=== PATIENT | male | born 1950 | race Caucasian/White ===

== ENCOUNTER → 2019-03-31 07:49 | Outpatient (CLI) | payer MEDICARE, SELFPAY ==
[2019-03-31 08:13] LABS: Add Manual Diff / Slide Review NO; Basophils Absolute Auto 100 /uL (0-100); Basophils Percent Auto 1.2 % (0-2); Eosinophils Absolute Auto 100 /uL (0-450); Eosinophils Percent Auto 2.3 % (2-4); Hemoglobin 15.6 g/dL (13.5-17.5); Lymphocytes Absolute Auto 1500 /uL (1100-4500); Lymphocytes Percent Auto 31.1 % (25-40); Mean Corpuscular HGB Conc 33.8 % (30-36); Mean Corpuscular Hemoglobin 31.2 PG (26-34); Mean Corpuscular Volume 92.5 fL (80-100); Monocytes Absolute Auto 500 /uL (0-900); Monocytes Percent Auto 11.1 % (3-14); Neutrophils Absolute Auto 2700 /uL (1500-7000); Neutrophils Percent Auto 54.3 % (50-75); Platelet Count 220 X10^3/uL (150-400); Red Blood Cell Count 4.98 X10^6/uL (4.5-5.9); Red Cell Distribution Width 13.7 % (11.6-14.8); White Blood Cell Count 4.9 X10^3/uL (4.5-11.0)
[2019-03-31 08:25] LABS: Alanine Aminotransferase 26 IU/L (21-72); Albumin 4.4 g/dL (3.5-5.0); Albumin Globulin Ratio 1.6 (1.0-2.8); Alkaline Phosphatase 62 U/L (38-126); Aspartate Aminotransferase 30 IU/L (17-59); Bilirubin Total 1.9 mg/dL (0.2-1.3); Blood Urea Nitrogen 18 mg/dL (9-20); Calcium 9.5 mg/dL (8.4-10.2); Carbon Dioxide 29 mmol/L (22-32); Chloride 102 mmol/L (98-107); Cholesterol 213 mg/dL (140-199); Estimated Glomerular Filt Rate > 60.0 mL/min (>60); Globulin 2.8 g/dL (1.7-4.1); Glucose 101 mg/dL (80-110); HDL Cholesterol 76 mg/dL (40-60); HEMOLYSIS 15 (0-50); LDL Cholesterol Calculated 120 mg/dL (<100); Potassium 4.3 mmol/L (3.4-5.1); Sodium 140 mmol/L (137-145); Total Protein 7.2 g/dL (6.3-8.2); Triglycerides 86 mg/dL (35-150)
[2019-03-31 08:54] LABS: Prostate Specific Antigen Scrn 0.732 ng/mL (0.1-4.0)
[2019-03-31 09:17] LABS: Vitamin D 25 Hydroxy (D3) 26.4 ng/mL (30.0-100.0)
[2019-03-31 09:30] LABS: Thyroid Stimulating Hormone 2.19 uIU/mL (0.47-4.68)
== END ==
PROVIDERS: Visit Provider Physician Assistant
DX: I10 Essential (primary) hypertension (principal); E78.5 Hyperlipidemia, unspecified; Z12.5 Encounter for screening for malignant neoplasm of prostate; E34.9 Endocrine disorder, unspecified; R53.83 Other fatigue; E55.9 Vitamin D deficiency, unspecified
CPT/HCPCS: 36415; 80053; 80061; 82306; 84403; 84443; 85025; G0103

== ENCOUNTER → 2020-03-10 17:24 | Outpatient (ROUT) | payer MEDICARE, SELFPAY ==
[2020-03-10 18:00] LABS: Add Manual Diff / Slide Review NO; Basophils Absolute Auto 0 /uL (0-100); Basophils Percent Auto 0.6 % (0-2); Eosinophils Absolute Auto 100 /uL (0-450); Eosinophils Percent Auto 1.2 % (2-4); Hemoglobin 15.2 g/dL (13.5-17.5); Lymphocytes Absolute Auto 1600 /uL (1100-4500); Lymphocytes Percent Auto 29.9 % (25-40); Mean Corpuscular HGB Conc 34.6 % (30-36); Mean Corpuscular Hemoglobin 31.6 PG (26-34); Mean Corpuscular Volume 91.3 fL (80-100); Monocytes Absolute Auto 600 /uL (0-900); Monocytes Percent Auto 10.5 % (3-14); Neutrophils Absolute Auto 3100 /uL (1500-7000); Neutrophils Percent Auto 57.8 % (50-75); Platelet Count 182 X10^3/uL (150-400); Red Blood Cell Count 4.82 X10^6/uL (4.5-5.9); Red Cell Distribution Width 13.2 % (11.6-14.8); White Blood Cell Count 5.4 X10^3/uL (4.5-11.0)
[2020-03-10 18:04] LABS: Alanine Aminotransferase 33 IU/L (<50); Albumin 4.2 g/dL (3.5-5.0); Albumin Globulin Ratio 1.6 (1.0-2.8); Alkaline Phosphatase 71 U/L (38-126); Aspartate Aminotransferase 32 IU/L (17-59); BUN Creatinine Ratio 16.5 (6-22); Blood Urea Nitrogen 16 mg/dL (9-20); Calcium 9.4 mg/dL (8.4-10.2); Carbon Dioxide 24 mmol/L (22-32); Chloride 105 mmol/L (98-107); Cholesterol 216 mg/dL (140-199); Estimated Glomerular Filt Rate > 60.0 mL/min (>60); Globulin 2.7 g/dL (1.7-4.1); Glucose 94 mg/dL (80-110); HDL Cholesterol 65 mg/dL (40-60); HEMOLYSIS < 15 (0-50); LDL Cholesterol Calculated 111 mg/dL (<100); Potassium 4.1 mmol/L (3.4-5.1); Sodium 136 mmol/L (137-145); Total Protein 6.9 g/dL (6.3-8.2); Triglycerides 198 mg/dL (35-150)
[2020-03-10 18:19] LABS: Vitamin D 25 Hydroxy (D3) 42.8 ng/mL (30.0-100.0)
[2020-03-10 18:32] LABS: TSH w/ Reflex to FT4 1.72 uIU/mL (0.47-4.68)
[2020-03-14 06:12] LABS: Percent Free Testosterone 3.06 % (1.50-4.20); Testosterone Free 7.48 ng/dL (5.00-21.00); Testosterone Total 244.5 ng/dL (264.0-916.0)
== END ==
PROVIDERS: Visit Provider Physician Assistant
DX: E34.9 Endocrine disorder, unspecified (principal); R53.83 Other fatigue; E55.9 Vitamin D deficiency, unspecified; E78.5 Hyperlipidemia, unspecified; I10 Essential (primary) hypertension
CPT/HCPCS: 80053; 80061; 82306; 84402; 84403; 84443; 85025

== ENCOUNTER → 2020-03-29 08:21 | Outpatient (CLI) | payer MEDICARE, SELFPAY ==
[2020-04-02 15:00] LABS: Percent Free Testosterone 4.68 % (1.50-4.20); Testosterone Free 15.14 ng/dL (5.00-21.00); Testosterone Total 323.6 ng/dL (264.0-916.0)
== END ==
PROVIDERS: PCP Physician Assistant; Referring Provider Physician Assistant; Visit Provider Physician Assistant
DX: E34.9 Endocrine disorder, unspecified (principal)
CPT/HCPCS: 36415; 84402; 84403

== ENCOUNTER → 2020-08-02 14:44 | Outpatient (ROUT) | payer MEDICARE, SELFPAY ==
[2020-08-02 14:58] LABS: Add Manual Diff / Slide Review NO; Basophils Absolute Auto 100 /uL (0-100); Basophils Percent Auto 0.9 % (0-2); Eosinophils Absolute Auto 1300 /uL (0-450); Eosinophils Percent Auto 17.3 % (2-4); Hematocrit 44.8 % (41-53); Lymphocytes Absolute Auto 1900 /uL (1100-4500); Lymphocytes Percent Auto 25.4 % (25-40); Mean Corpuscular HGB Conc 33.4 % (30-36); Mean Corpuscular Hemoglobin 30.7 PG (26-34); Monocytes Absolute Auto 600 /uL (0-900); Monocytes Percent Auto 7.9 % (3-14); Neutrophils Absolute Auto 3600 /uL (1500-7000); Neutrophils Percent Auto 48.5 % (50-75); Platelet Count 200 X10^3/uL (150-400); Red Blood Cell Count 4.87 X10^6/uL (4.5-5.9); Red Cell Distribution Width 13.7 % (11.6-14.8); White Blood Cell Count 7.5 X10^3/uL (4.5-11.0)
[2020-08-02 15:03] LABS: HEMOLYSIS < 15 (0-50); Iron 106 ug/dL (49-181)
[2020-08-02 15:05] LABS: Alanine Aminotransferase 26 IU/L (<50); Albumin 3.9 g/dL (3.5-5.0); Albumin Globulin Ratio 1.6 (1.0-2.8); Alkaline Phosphatase 80 U/L (38-126); Aspartate Aminotransferase 29 IU/L (17-59); BUN Creatinine Ratio 17.2 (6-22); Bilirubin Total 1.1 mg/dL (0.2-1.3); Blood Urea Nitrogen 16 mg/dL (9-20); Calcium 9.3 mg/dL (8.4-10.2); Carbon Dioxide 29 mmol/L (22-32); Chloride 106 mmol/L (98-107); Cholesterol 198 mg/dL (140-199); Estimated Glomerular Filt Rate > 60.0 mL/min (>60); Globulin 2.5 g/dL (1.7-4.1); Glucose 99 mg/dL (80-110); HDL Cholesterol 48 mg/dL (40-60); HEMOLYSIS < 15 (0-50); LDL Cholesterol Calculated 121 mg/dL (<100); Sodium 139 mmol/L (137-145); Total Protein 6.4 g/dL (6.3-8.2); Triglycerides 145 mg/dL (35-150)
[2020-08-02 15:14] LABS: Percent Iron Saturation 39 % (20-50); Total Iron Binding Capacity 273 ug/dL (261-462); Transferrin 218 mg/dL (206-381)
[2020-08-02 15:39] LABS: Ferritin 87 ng/mL (18-464)
[2020-08-02 17:23] LABS: Vitamin D 25 Hydroxy (D3) 48.6 ng/mL (30.0-100.0)
== END ==
PROVIDERS: PCP Physician Assistant; Visit Provider Physician Assistant
DX: G25.81 Restless legs syndrome (principal); G47.00 Insomnia, unspecified; I10 Essential (primary) hypertension; E78.5 Hyperlipidemia, unspecified
CPT/HCPCS: 80053; 80061; 82306; 82728; 83540; 83550; 85025

== ENCOUNTER → 2020-08-16 07:40 | Outpatient (CLI) | payer MEDICARE, SELFPAY ==
[2020-08-16] MEDS: COVID-19 VACC #1, MRNA(MOD) 100 MCG/0.5 ML VIAL IM (07:49)
== END ==
PROVIDERS: PCP Physician Assistant; Visit Provider Internal Medicine
DX: Z23 Encounter for immunization (principal)
CPT/HCPCS: 0011A; 91301

== ENCOUNTER → 2020-08-16 12:02 | Outpatient (CLI) | payer MEDICARE, SELFPAY ==
[2020-08-16 13:13] LABS: Hematocrit 45.9 % (41-53); Hemoglobin 15.2 g/dL (13.5-17.5); Mean Corpuscular HGB Conc 33.2 % (30-36); Mean Corpuscular Hemoglobin 30.4 PG (26-34); Mean Corpuscular Volume 91.5 fL (80-100); Platelet Count 236 X10^3/uL (150-400); Red Blood Cell Count 5.02 X10^6/uL (4.5-5.9); Red Cell Distribution Width 13.7 % (11.6-14.8); White Blood Cell Count 7.8 X10^3/uL (4.5-11.0)
[2020-08-16 14:47] LABS: Neutrophils Absolute Manual 3666 /uL (3000-5900); RBC Morphology Normal Morphology; Total Cells Counted 100
[2020-08-16 14:48] LABS: Platelet Morphology Comment NOTE
[2020-08-30 14:51] LABS: Testosterone, Total 332.3
== END ==
PROVIDERS: PCP Physician Assistant; Referring Provider Physician Assistant; Visit Provider Physician Assistant
DX: G25.81 Restless legs syndrome (principal); G47.00 Insomnia, unspecified; I10 Essential (primary) hypertension; E78.5 Hyperlipidemia, unspecified; E34.9 Endocrine disorder, unspecified
CPT/HCPCS: 36415; 84402; 84403; 85025

== ENCOUNTER → 2020-09-09 09:13 | Outpatient (CLI) | payer MEDICARE, SELFPAY ==
[2020-09-09 09:56] LABS: Add Manual Diff / Slide Review NO; Basophils Absolute Auto 100 /uL (0-100); Basophils Percent Auto 1.5 % (0-2); Eosinophils Absolute Auto 100 /uL (0-450); Eosinophils Percent Auto 2.9 % (2-4); Hematocrit 43.2 % (41-53); Hemoglobin 14.8 g/dL (13.5-17.5); Lymphocytes Absolute Auto 1600 /uL (1100-4500); Mean Corpuscular HGB Conc 34.3 % (30-36); Mean Corpuscular Hemoglobin 31.3 PG (26-34); Mean Corpuscular Volume 91.4 fL (80-100); Monocytes Absolute Auto 600 /uL (0-900); Monocytes Percent Auto 11.2 % (3-14); Neutrophils Absolute Auto 2700 /uL (1500-7000); Neutrophils Percent Auto 52.4 % (50-75); Platelet Count 202 X10^3/uL (150-400); Red Blood Cell Count 4.73 X10^6/uL (4.5-5.9); Red Cell Distribution Width 13.2 % (11.6-14.8); White Blood Cell Count 5.1 X10^3/uL (4.5-11.0)
== END ==
PROVIDERS: PCP Physician Assistant; Referring Provider Physician Assistant; Visit Provider Physician Assistant
DX: D72.10 Eosinophilia, unspecified (principal)
CPT/HCPCS: 36415; 85025

== ENCOUNTER → 2020-09-13 07:36 | Outpatient (CLI) | payer MEDICARE, SELFPAY ==
[2020-09-13] MEDS: COVID-19 VACC #2, MRNA(MOD) 100 MCG/0.5 ML VIAL IM (07:53)
== END ==
PROVIDERS: PCP Physician Assistant; Visit Provider Internal Medicine
DX: Z23 Encounter for immunization (principal)
CPT/HCPCS: 0012A; 91301

== ENCOUNTER → 2021-02-07 14:40 | Outpatient (CLI) | payer MEDICARE, SELFPAY ==
--- NOTE | 2021-02-07 | DI.RAD.S_ITS ---
PROCEDURE: XR SHOULDER RT MIN 2V INDICATIONS: chronic right shoulder pain TECHNIQUE: 3 views of the shoulder were acquired. COMPARISON: [facility], , SHOULDER MINIMUM 2VIEW RIGHT, 07/24/2011, 15:48. FINDINGS: Bones: No fractures or dislocations. No suspicious bony lesions. Visualized ribs appear intact. Soft tissues: No suspicious soft tissue calcifications. 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 Dictated by: Killian Melendez M.D. on 02/07/2021 at 16:35 Approved by: Killian Melendez M.D. on 02/07/2021 at 16:35
== END ==
PROVIDERS: PCP Physician Assistant; Referring Provider Physician Assistant; Visit Provider Physician Assistant
DX: M25.511 Pain in right shoulder (principal); M19.011 Primary osteoarthritis, right shoulder; G89.29 Other chronic pain
CPT/HCPCS: 73030

== ENCOUNTER → 2022-03-01 12:40 | Outpatient (CLI) | payer MEDICARE, SELFPAY ==
--- NOTE | 2022-03-01 | DI.MRI.S_ITS ---
PROCEDURE: MR LUMBAR SPINE WO CON INDICATIONS: Spinal stenosis, lumbar region TECHNIQUE: Noncontrast sagittal T1 spin echo and T2 fast echo, sagittal STIR, and T2 fast spin echo through the lumbar spine. In cases with scoliosis, additional coronal T2 fast spin echo may be performed. COMPARISON: None. FINDINGS: Image quality: Excellent. Alignment and Curvature: There is trace, approximately 2 millimeters of L1-L2 and L2-L3 retrolisthesis. There is mild, approximately 4 millimeters of L4-L5 retrolisthesis. Bone Marrow: PICC type 1 reactive endplate changes noted adjacent to the L2-L3 and L4-L5 discs. Modic type 2 reactive endplate changes noted adjacent to the L5-S1 disc. Benign, intraosseous hemangioma noted in the L1 vertebral body. No acute vertebral body compression fractures. Spinal Cord: Conus medullaris terminates at the L1 level. Visualized cord demonstrates normal signal and size. Paraspinous Soft Tissues: No paravertebral masses. T12-L1: Normal appearance. L1-L2: Loss of disc signal and slight loss of disc height. Moderate, diffuse disc bulge. Mild bilateral facet hypertrophy. Mild narrowing of the central canal. Mild bilateral neural foraminal narrowing. No neural compression. L2-L3: Loss of disc signal and height. Moderate, diffuse disc bulge. [id number] bilateral facet hypertrophy. Mild ligamentum flavum hypertrophy. Severe narrowing of the central canal with compression of the nerve roots of the cauda equina. Moderate right and severe left neural foraminal narrowing with compression of the exiting left L2 nerve root. L3-L4: Loss of disc signal and slight loss of disc height. Moderate, diffuse disc bulge. Moderate right and mild left facet hypertrophy. Mild to moderate narrowing of the central canal. Severe right and moderate left neural foraminal narrowing with compression of the exiting right L3 nerve root. L4-L5: Loss of disc signal and height. Mild, diffuse disc bulge. Small right central disc extrusion. Extruded disc material extends inferiorly along posterior margin of the L5 vertebral body into the right lateral recess. Mild bilateral facet hypertrophy. Mild to moderate narrowing of the central canal. Severe right and moderate left neural foraminal narrowing with compression of the exiting right L4 nerve root. L5-S1: Loss of disc signal and height. Mild, diffuse disc bulge. Mild bilateral facet hypertrophy. No central stenosis. Severe bilateral neural foraminal narrowing with compression of the exiting L5 nerve roots. IMPRESSION: 1. Multilevel degenerative disc disease. 2. Multilevel facet arthropathy. 3. Severe L2-L3 central canal narrowing with compression of the nerve roots of the cauda equina. 4. Severe bilateral L5-S1 neural foraminal narrowing with compression of the exiting bilateral L5 nerve roots. Severe left L2-L3 neural foraminal narrowing with compression exiting left L2 nerve root. Severe right L4-L5 neural foraminal narrowing with compression of the exiting right L4 nerve root. 5. Small right central L4-L5 disc extrusion. Dictated by: Ruthy Bains MD, PhD on 03/01/2022 at 16:24 Approved by: Ruthy Bains MD, PhD on 03/01/2022 at 16:29
== END ==
PROVIDERS: PCP Physician Assistant; Referring Provider Physician Assistant; Visit Provider Physician Assistant
DX: M48.061 Spinal stenosis, lumbar region without neurogenic claudication (principal); M48.07 Spinal stenosis, lumbosacral region; M47.816 Spondylosis without myelopathy or radiculopathy, lumbar region; M47.817 Spondylosis without myelopathy or radiculopathy, lumbosacral region; M51.36 Other intervertebral disc degeneration, lumbar region; M51.37 Other intervertebral disc degeneration, lumbosacral region
CPT/HCPCS: 72148

== ENCOUNTER 2023-02-22 09:25 | Day surgery (SDC) | payer MEDICARE, SELFPAY ==
[2023-02-22] VITALS (9 sets, daily range): BP systolic 93–147; BP diastolic 61–78; PULSE 42–66; RESP 12–22; TEMP 35.9–36.6; O2SAT 94–99; BMI 25.1
--- NOTE | 2023-02-22 | PATH_ITS ---
[facility] Accession Number: [id number] No. of containers..01 Tissue . 01 Material submitted: . rectum - RECTAL POLYP . 01 Diagnosis: Rectum, Polyp: Hyperplastic polyp. MRV 03/04/2023 1526 Local . 01 Electronically signed: . Yasmeen Coleman MD, Pathologist NPI- [id number] . 01 Gross description: . RECTAL POLYP: Received in formalin is 1 fragment(s) of miles, soft tissue measuring 0.2 x 0.2 x 0.2 cm submitted entirely in 1 cassette(s) /JOSE 02/28/2023 0032 Local . 01 Pathologist provided ICD-10: K62.1 . 01 CPT . 388383 Specimen Comment: A courtesy copy of this report has been sent to [facility] Pathology Performed at: 01 [facility] [address] [place] [address] [id number] MD Adalid Stapleton MD Phone: [phone]
[2023-02-22] MEDS: LACTATED RINGERS 1,000 ML 100 ML IV (10:03)
--- NOTE | 2023-02-22 11:39 | P.HP_ITS ---
History of Present Illness History of Present Illness Date Patient Seen: 02/22/23 Time Patient Seen: 11:39 Chief complaint: Colonoscopy Narrative: 72-year-old man presents today for what he says is probably about his 3rd colonoscopy thinks his last 1 was about 5 years ago, and he does not recall having had any polyps. He believes these were done at [facility]. I see an encounter dated [address] Disla but the report is not available for viewing. He does not have any family history of colon cancer. His endorses no concerning symptoms. He is here for screening and understands the risks and benefits had his questions answered and would like to proceed. [facility], LAT[facility] Medical History (Updated 02/22/23 @ 11:40 by Jackelyn Epstein MD) Arthritis Hypertension Skin cancer (melanoma) Wears hearing aid in both ears Social History household members: spouse Smoking Status: Never smoker alcohol intake: current Meds Home Medications and Allergies Home Medications Medication Instructions Recorded Confirmed Type amlodipine 10 mg tablet 10 mg PO DAILY 02/22/23 02/22/23 History donepezil 5 mg tablet 5 mg PO DAILY 02/22/23 02/22/23 History ibuprofen 400 mg tablet 400 mg PO Q6H PRN Pain (Scale 02/22/23 02/22/23 History Score 4-6) metoprolol succinate 50 mg 50 mg PO DAILY 02/22/23 02/22/23 History tablet,extended release 24 hr ropinirole 1 mg tablet 1 mg PO BEDTIME 02/22/23 02/22/23 History Allergies Allergy/AdvReac Type Severity Reaction Status Date / Time No Known Drug Allergies Allergy Verified 01/17/20 09:05 Exam Vital Signs (past 8 hours): - 02/22/23 10:01 Temperature 96.6 F L Pulse Rate 66 Respiratory Rate 16 Blood Pressure 147/78 H Pulse Oximetry 97 Oxygen Delivery Method Room Air Oxygen Delivery Method Room Air Const General: cooperative, healthy appearing and comfortable [facility] Head: normal to inspection Eyes General: appearance normal, both eyes and all related structures Resp Effort & Inspection: normal respiratory effort and able to speak in complete sentences GI Palpation: soft and No tender Assessment & Plan Assessment and plan (1) Screening for colon cancer: Status: Acute Assessment & Plan narrative: Presents today for screening colonoscopy I discussed the risks benefits and alternatives including but not limited to perforation of the colon and an incomplete exam he fully understands these risks and would like to proceed.
--- NOTE | 2023-02-22 12:37 | PM.OP.COLON ---
Operative Date/Time/Diagnoses Date of procedure: 02/22/23 Time of procedure: 12:38 Pre-op diagnosis: Screening for colon cancer. no family history Post-op diagnosis: same Procedure & Clinicians Study performed: Colonoscopy and biopsy Same procedure as scheduled: Yes Indications: Screening for colon cancer Surgeon: Jackelyn Epstein Procedure Notes Procedure in detail: Patient was taken to the endoscopy suite and placed in a left lateral decubitus position. A time-out was performed. With the help of anesthesiologist conscious sedation was induced and monitored throughout the case. A digital rectal exam was performed and there were no masses or strictures. The colonoscope was introduced into the anal canal and advanced through to the cecum. A photograph of the appendiceal orifice was obtained. The bowel prep was good [place] bowel prep score of 2. The scope was then withdrawn for a total of 12 minutes and 1 small rectal polyp was removed with biopsy forceps. The scope was then retroflexed and a photograph of the internal hemorrhoidal piles was obtained. There was a prominent left lateral internal hemorrhoid. Findings: internal hemorrhoids and polyp(s) Specimen(s): other (1. Rectal polyp) Complications: none Post-procedure Plan for aftercare: Likely 7-10 year polyp follow-up. I do recommend fiber supplementation for any patient with hemorrhoid or polyps.
== END 2023-02-22 12:55 | disposition home or self-care (01) ==
PROVIDERS: PCP Student in an Organized Health Care Education/Training Program; Referring Provider Surgery; Visit Provider Surgery
PROC: 0DJD8ZZ Inspection of Lower Intestinal Tract, Via Natural or Artificial Opening Endoscopic (ICD-10-PCS; CPT 45378; principal; 2023-02-22 10:45)
DX: Z12.11 Encounter for screening for malignant neoplasm of colon (principal); K64.8 Other hemorrhoids; K62.1 Rectal polyp
CPT/HCPCS: 45380